=== PATIENT | female | born 1945 | race African-American/Black ===

== ENCOUNTER 2021-01-10 14:12 | Emergency (ER) | payer OTHER ==
[~2021-01-10] VITALS: Ht 154.9 cm; Wt 56.7 kg
[~2021-01-10 14:12] MED LIST: ALBUAER17 IN; ALLO100T PO; CALC12502 PO; CALC600C PO; CARV25TA PO; CLON0.1T PO; FLUT0.0531; GLIP5TAB12 PO; HYDR-4298 PO; LISI20TA28 PO; NAPR-223 PO; NOR10T PO; PANT40TA2 PO; POTA-167 PO; SIMV-13 PO
[2021-01-10 15:24] LABS: Basophils # (auto) 0 10 ^3/uL (0-0.2); Basophils % (auto) 0.2 % (0.0-2.0); Eosinophils # (auto) 0.1 10 ^3/uL (0-0.8); Eosinophils % (auto) 0.5 % (0.0-7.0); Hematocrit 32.6 % (36.0-46.0); Hemoglobin 10.4 g/dL (12.2-16.2); Lymphocytes # (auto) 1.1 10 ^3/uL (0.4-5.4); Lymphocytes % (auto) 10.3 % (10.0-50.0); Mean Corpuscular Volume 78.3 fL (80.0-100.0); Monocytes # (auto) 1.1 10 ^3/uL (0-1.3); Monocytes % (auto) 10.8 % (0.0-12.0); Neutrophils % (auto) 78.2 % (37.0-80.0); Nucleated Red Blood Cells % 0.1 %; Red Blood Cells 4.16 10^6/uL (4.0-5.20); Red Cell Distribution Width 16.1 % (11.8-14.3); White Blood Cell 10.2 10^3/uL (4.4-10.8)
[2021-01-10 15:41] LABS: Albumin 2.5 g/dL (3.4-5.0); BUN/Creatinine Ratio 18.6; Calcium 8.4 mg/dL (8.5-10.1); Potassium 3.2 mmol/L (3.5-5.1)
[2021-01-10 15:43] LABS: Bilirubin, Total 0.6 mg/dL (0.2-1.0); Total Protein 6.8 g/dL (6.4-8.2)
[2021-01-10] MEDS ORDERED: SODIUM CHLORIDE 0.9% 1,000 ML IV ONE (16:15)
[2021-01-10] MEDS ORDERED: cefTRIAXone 1GM/50ML D5W 50 ML IV ONE (17:00)
[2021-01-10 17:37] LABS: INR 1.11 (0.9-1.15); Partial Thromboplastin Time 34.7 sec (23.6-33.0)
[2021-01-10] MEDS ORDERED: POTASSIUM EFFERVESENT TAB 25 MEQ PO ONE (18:00)
[2021-01-11 08:46] VITALS: BP 130/61
== END 2021-01-11 15:41 | disposition short-term general hospital (02) ==
LOC: ER 14:12 → EDBD 14:12 → ER 01-11 15:41
DX: R07.89 Other chest pain (principal); J18.9 Pneumonia, unspecified organism; E87.6 Hypokalemia; J44.9 Chronic obstructive pulmonary disease, unspecified; E43 Unspecified severe protein-calorie malnutrition; I10 Essential (primary) hypertension; E11.9 Type 2 diabetes mellitus without complications; E78.5 Hyperlipidemia, unspecified; Z68.23 Body mass index [BMI] 23.0-23.9, adult; Z86.73 Personal history of transient ischemic attack (TIA), and cerebral infarction without residual deficits; Z79.899 Other long term (current) drug therapy; Z88.6 Allergy status to analgesic agent; Z88.8 Allergy status to other drugs, medicaments and biological substances; Z20.822 Contact with and (suspected) exposure to COVID-19
CPT/HCPCS: 36415; 71045; 80053; 83735; 84443; 84484; 85025; 85610; 85730; 87040; 87426; 93005; 96361; 96365; 99285; J0696; J7030

== ENCOUNTER 2021-01-20 12:01 | Inpatient (IN) | payer OTHER ==
[~2021-01-20] VITALS: Ht 157.5 cm; Wt 57.5 kg
[2021-01-20 14:21] LABS: Basophils # (auto) 0 10 ^3/uL (0-0.2); Basophils % (auto) 0.2 % (0.0-2.0); Eosinophils # (auto) 0 10 ^3/uL (0-0.8); Eosinophils % (auto) 0.5 % (0.0-7.0); Hematocrit 29.5 % (36.0-46.0); Hemoglobin 9.6 g/dL (12.2-16.2); Lymphocytes # (auto) 0.9 10 ^3/uL (0.4-5.4); Lymphocytes % (auto) 9.7 % (10.0-50.0); Mean Corpuscular Hemoglobin 25.5 pg (28.0-32.0); Mean Corpuscular Hgb Conc. 32.5 g/dL (32.0-36.0); Mean Corpuscular Volume 78.6 fL (80.0-100.0); Monocytes # (auto) 0.8 10 ^3/uL (0-1.3); Monocytes % (auto) 9.4 % (0.0-12.0); Neutrophils # (auto) 7.2 10 ^3/uL (1.6-8.6); Neutrophils % (auto) 80.2 % (37.0-80.0); Red Blood Cells 3.75 10^6/uL (4.0-5.20); Red Cell Distribution Width 15.9 % (11.8-14.3)
[2021-01-20 14:30] LABS: Albumin 2.3 g/dL (3.4-5.0); Calcium 8.3 mg/dL (8.5-10.1); Potassium 4.3 mmol/L (3.5-5.1)
[2021-01-20 14:38] LABS: BUN/Creatinine Ratio 13.9; Bilirubin, Total 0.7 mg/dL (0.2-1.0)
[2021-01-20] MEDS ORDERED: ASPirin 81 mg TAB PO ONE (17:15)
[2021-01-20] MEDS ORDERED: DEXTROSE (50%) 50ML SYRG IV PRN (22:00)
[2021-01-20] MEDS ORDERED: NITROGLYCERIN 0.4 MG SL TAB SL PRN (22:00)
[2021-01-20] MEDS ORDERED: MORPHINE SULFATE INJECTION 2 MG/ML SYRG IV PRN (22:00)
[2021-01-20] MEDS ORDERED: ACETAMINOPHEN 325 MG TAB PO PRN (22:00)
[2021-01-20] MEDS ORDERED: TEMAZEPAM 15 MG CAP PO PRN (22:00)
[2021-01-20] MEDS: ATORVASTATIN 20 MG TAB PO SCH (22:00)
[2021-01-20] MEDS ORDERED: ONDANSETRON HCL 4 MG/2 ML VIAL IV PRN (22:00)
[2021-01-20] MEDS ORDERED: cloNIDine HCL 0.1 MG TAB PO PRN (22:00)
[2021-01-20] MEDS: CARVEDILOL 12.5 MG TAB PO SCH (23:00)
[2021-01-20] MEDS: InsuLIN REG 1unit/0.01ml Soln (100units/ml) SC SCH (23:00)
[2021-01-20] MEDS: hydrALAZINE HCL 25 MG TAB PO SCH (23:00)
[2021-01-20] MEDS: ACCU-CHEK COMFORT CURVE STRIP VI SCH (23:00)
[2021-01-21] MEDS: ACCU-CHEK COMFORT CURVE STRIP VI SCH ×4 (06:43→21:34)
[2021-01-21] MEDS: InsuLIN REG 1unit/0.01ml Soln (100units/ml) SC SCH ×4 (06:43→21:34)
[2021-01-21 06:45] LABS: Calcium 8.3 mg/dL (8.5-10.1); Potassium 4.4 mmol/L (3.5-5.1)
[2021-01-21 06:49] LABS: BUN/Creatinine Ratio 22.2; Bilirubin, Total 0.8 mg/dL (0.2-1.0); Total Protein 6.5 g/dL (6.4-8.2)
[2021-01-21 06:56] LABS: Basophils # (auto) 0 10 ^3/uL (0-0.2); Eosinophils # (auto) 0 10 ^3/uL (0-0.8); Eosinophils % (auto) 0.5 % (0.0-7.0); Lymphocytes # (auto) 0.7 10 ^3/uL (0.4-5.4); Mean Corpuscular Hgb Conc. 31.3 g/dL (32.0-36.0); Monocytes # (auto) 0.7 10 ^3/uL (0-1.3); Nucleated Red Blood Cells % 0.1 %
[2021-01-21 06:58] LABS: Basophils % (auto) 0.2 % (0.0-2.0); Hematocrit 30.2 % (36.0-46.0); Hemoglobin 9.4 g/dL (12.2-16.2); Lymphocytes % (auto) 8.2 % (10.0-50.0); Monocytes % (auto) 8.1 % (0.0-12.0); Neutrophils # (auto) 6.9 10 ^3/uL (1.6-8.6); Red Blood Cells 3.77 10^6/uL (4.0-5.20); Red Cell Distribution Width 16.6 % (11.8-14.3); White Blood Cell 8.3 10^3/uL (4.4-10.8)
[2021-01-21] MEDS: hydrALAZINE HCL 25 MG TAB PO SCH ×2 (11:20→21:33)
[2021-01-21] MEDS: CARVEDILOL 12.5 MG TAB PO SCH ×2 (11:20→21:33)
[2021-01-21] MEDS: ENOXAPARIN SOD 40 MG/0.4 ML SYRINGE SC SCH (11:21)
[2021-01-21] MEDS: ALLOPURINOL 100 MG TAB PO SCH (11:21)
[2021-01-21] MEDS ORDERED: AZITHROMYCIN 250 MG TAB PO ONE (12:15)
[2021-01-21] MEDS ORDERED: cefTRIAXone 1GM/50ML D5W 50 ML IV ONE (12:15)
[2021-01-21] MEDS ORDERED: FUROSEMIDE 20 MG/2 ML VIAL IV ONE (12:15)
[2021-01-21 16:25] VITALS: BP 143/73
[2021-01-21 17:00] VITALS: BP 143/73
[2021-01-21] MEDS: ATORVASTATIN 20 MG TAB PO SCH (21:33)
[2021-01-21 22:00] VITALS: BP 134/79
[2021-01-22 05:15] VITALS: BP 128/70
[2021-01-22] MEDS: ACCU-CHEK COMFORT CURVE STRIP VI SCH ×4 (06:12→21:04)
[2021-01-22] MEDS: InsuLIN REG 1unit/0.01ml Soln (100units/ml) SC SCH ×4 (06:12→21:10)
[2021-01-22 09:00] VITALS: BP_SYST 140; BP_SYST 97; BP_DIAS 55; BP_DIAS 74
[2021-01-22] MEDS: hydrALAZINE HCL 25 MG TAB PO SCH ×2 (09:07→21:03)
[2021-01-22] MEDS: CARVEDILOL 12.5 MG TAB PO SCH ×2 (09:07→21:04)
[2021-01-22] MEDS: AZITHROMYCIN 250 MG TAB PO SCH (09:08)
[2021-01-22] MEDS: cefTRIAXone 1GM/50ML D5W 50 ML IV SCH (09:08)
[2021-01-22] MEDS: FUROSEMIDE 20 MG/2 ML VIAL IV SCH (09:09)
[2021-01-22] MEDS: ENOXAPARIN SOD 40 MG/0.4 ML SYRINGE SC SCH (09:09)
[2021-01-22] MEDS: ALLOPURINOL 100 MG TAB PO SCH (09:09)
[2021-01-22 12:37] VITALS: BP 112/62
[2021-01-22 16:50] VITALS: BP 108/75
[2021-01-22] MEDS: ATORVASTATIN 20 MG TAB PO SCH (21:03)
[2021-01-22 22:00] VITALS: BP 141/90
[2021-01-23 05:00] VITALS: BP 131/66
[2021-01-23] MEDS: InsuLIN REG 1unit/0.01ml Soln (100units/ml) SC SCH ×3 (05:59→17:00)
[2021-01-23] MEDS: ACCU-CHEK COMFORT CURVE STRIP VI SCH ×3 (05:59→17:00)
[2021-01-23] MEDS ORDERED: ADENOSINE 48 MG in GIVE UN-DILUTED 0 ML IV STA (07:59)
[2021-01-23 09:00] VITALS: BP 120/70
[2021-01-23] MEDS: cefTRIAXone 1GM/50ML D5W 50 ML IV SCH (09:00)
[2021-01-23] MEDS: CARVEDILOL 12.5 MG TAB PO SCH (10:00)
[2021-01-23] MEDS: ENOXAPARIN SOD 40 MG/0.4 ML SYRINGE SC SCH (10:00)
[2021-01-23] MEDS: hydrALAZINE HCL 25 MG TAB PO SCH (10:00)
[2021-01-23] MEDS: AZITHROMYCIN 250 MG TAB PO SCH (10:00)
[2021-01-23 12:37] VITALS: BP 107/62
[2021-01-23] MEDS ORDERED: FURO20TA3 PO (13:00)
[2021-01-23] MEDS ORDERED: DOXY-111 PO (13:04)
[2021-01-23] MEDS: FUROSEMIDE 20 MG/2 ML VIAL IV SCH (14:00)
[2021-01-23] MEDS: ALLOPURINOL 100 MG TAB PO SCH (14:00)
[2021-01-23 15:36] VITALS: BP 107/62
== END 2021-01-23 18:30 | disposition home or self-care (01) | DRG 205 ==
LOC: EDBD 12:01 → ER 12:01 → TELE 21:54 → TELE-WESTW 01-21 16:18
PROVIDERS: ADMIT Nurse Practitioner; ATTEND Internal Medicine Nephrology
DX: J98.11 Atelectasis (principal); I50.31 Acute diastolic (congestive) heart failure; J90 Pleural effusion, not elsewhere classified; E44.0 Moderate protein-calorie malnutrition; I20.0 Unstable angina; J84.89 Other specified interstitial pulmonary diseases; I11.0 Hypertensive heart disease with heart failure; Z20.822 Contact with and (suspected) exposure to COVID-19; E11.9 Type 2 diabetes mellitus without complications; E78.5 Hyperlipidemia, unspecified; D50.9 Iron deficiency anemia, unspecified; Z88.6 Allergy status to analgesic agent; Z88.8 Allergy status to other drugs, medicaments and biological substances; Z79.4 Long term (current) use of insulin; Z79.899 Other long term (current) drug therapy; Z86.73 Personal history of transient ischemic attack (TIA), and cerebral infarction without residual deficits; M19.90 Unspecified osteoarthritis, unspecified site; J44.9 Chronic obstructive pulmonary disease, unspecified
CPT/HCPCS: 36415; 71045; 71250; 78452; 80053; 82962; 83880; 84484; 85025; 87426; 93017; 93306; 96365; 96375; G0378; J0153; J0696; J1815